=== PATIENT | female | born 1965 | race African-American/Black ===

== ENCOUNTER 2017-03-30 14:57 | Inpatient (IN) | payer MEDICARE, OTHER ==
[~2017-03-30] VITALS: Ht 162.6 cm; Wt 102.5 kg
[2017-03-30] MEDS ORDERED: INSU100I13 SQ (15:27)
[2017-03-30] MEDS ORDERED: AMLO10TA2 PO (15:27)
[2017-03-30] MEDS ORDERED: ASPIRIN 81 MG TAB.CHEW PO ONE (15:30)
[2017-03-30 15:34] LABS: BASO % 1 % (0-3); EOS # 0.1 x10^3/uL (0.0-0.7); EOS % 1 % (0-3); HEMATOCRIT 30.1 % (36.0-47.0); HEMOGLOBIN 10.5 g/dL (12.0-15.5); LYMPH # 0.8 x10^3/uL (1.0-4.8); LYMPH % 18 % (24-48); MEAN CORPUSCULAR HEMOGLOBIN 29 pg (25-35); MEAN CORPUSCULAR HGB CONC 35 g/dL (31-37); MEAN CORPUSCULAR VOLUME 83 fL (79-100); MONO # 0.3 x10^3/uL (0.0-1.1); MONO % 8 % (0-9); NEUT # 3.2 x10^3uL (1.8-7.7); NEUT % 72 % (31-73); PLATELET COUNT 172 x10^3/uL (140-400); RED BLOOD COUNT 3.64 x10^6/uL (3.50-5.40); RED CELL DISTRIBUTION WIDTH 13.2 % (11.5-14.5); WHITE BLOOD COUNT 4.4 x10^3/uL (4.0-11.0)
--- NOTE | 2017-03-30 15:36 | RAD ---
Portable chest, 03/30/2017: History: Chest pain The heart size and pulmonary vascularity are normal. No pulmonary infiltrates are seen. There is no evidence of pleural fluid. IMPRESSION: No acute cardiopulmonary abnormality is detected.
[2017-03-30 15:51] LABS: ALBUMIN 2.1 g/dL (3.4-5.0); ALBUMIN/GLOBULIN RATIO 0.6 (1.0-1.7); CALCIUM 8.4 mg/dL (8.5-10.1); CREATININE 2.8 mg/dL (0.6-1.0); GFR 21.7; MAGNESIUM 1.5 mg/dL (1.8-2.4); POTASSIUM 4.2 mmol/L (3.5-5.1); TOTAL BILIRUBIN 0.4 mg/dL (0.2-1.0); TOTAL PROTEIN 5.5 g/dL (6.4-8.2)
[2017-03-30] MEDS ORDERED: MORPHINE SULFATE 2 MG/ML DISP.SYRIN. IV PRN (17:30)
[2017-03-30] MEDS ORDERED: ONDANSETRON PF 4 MG/2 ML VIAL. IV PRN (17:30)
[2017-03-30] MEDS ORDERED: NITROGLYCERIN SUBLINGUAL 0.4 MG BOTTLE OF 25. SL PRN (17:30)
[2017-03-30] MEDS ORDERED: ACETAMINOPHEN 325 MG TABLET PO PRN (17:30)
[2017-03-30] MEDS ORDERED: MAGNESIUM SULFATE 1GM 100 ML IV ONE (17:45)
[2017-03-30] MEDS ORDERED: DEXTROSE 50% 25 GM / 50ML DISP.SYRIN. IV PRN (17:45)
[2017-03-30] MEDS ORDERED: IV RINGERS SOLUTION,LACTATED 1,000 ML IV PRN (17:45)
--- NOTE | 2017-03-30 17:46 | PHYS DOC ---
Past History Past Medical History: Diabetes, Hypertension, Other Past Surgical History: Tonsillectomy, Tubal ligation, Other Alcohol Use: None Drug Use: None Adult General Chief Complaint Chief Complaint: CHEST PAIN HPI HPI Patient is a 51 year old female who presents with chest pain. The patient reports onset of symptoms shortly prior to arrival while at rest. She reports substernal chest tightness radiating across her chest, associated with shortness of breath, nausea,diaphoresis. Denies fevers/chlls, cough, lower extremity pain/swelling. She states pain is slightly better now than at time of onset. She denies previous history of chest pain. She has history of diabetes, hypertension, denies tobacco use, reports family history of CHF in her mother. Has seen a silo erector previously. She has history of CKD & is followed by nephrology as of last week. Review of Systems Review of Systems Constitutional: Denies fever or chills Eyes: Denies change in visual acuity HENT: Denies nasal congestion or sore throat Respiratory: Denies cough, reports shortness of breath Cardiovascular: Reports chest pain, denies edema GI: Reports nausea, Denies abdominal pain, vomiting, bloody stools or diarrhea : Denies dysuria or hematuria Musculoskeletal: Denies back pain or joint pain Integument: Denies rash or skin lesions Neurologic: Denies headache, focal weakness or sensory changes Current Medications Current Medications Current Medications Medications (Trade) Dose Ordered Sig/Marlo Start Time Stop Time Status Last Admin Dose Admin Acetaminophen (Tylenol) 650 mg PRN Q4HRS PRN 03/30/17 17:30 03/31/17 17:29 Aspirin (Children'S Aspirin) 324 mg 1X ONCE 03/30/17 15:30 03/30/17 16:08 DC Dextrose 12.5 gm PRN Q15MIN PRN 03/30/17 17:45 UNV Lactated Ringer's 1,000 ml @ 100 mls/hr CONT 03/30/17 17:45 UNV Magnesium Sulfate/ Dextrose 100 ml @ 100 mls/hr 1X ONCE 03/30/17 17:45 03/30/17 18:44 Morphine Sulfate (Morphine 2mg Syringe) 2 mg PRN Q2HR PRN 03/30/17 17:30 03/31/17 17:29 Nitroglycerin (Nitrostat) 0.4 mg PRN Q5MIN PRN 03/30/17 17:30 03/31/17 17:29 Ondansetron HCl (Zofran) 4 mg PRN Q4HRS PRN 03/30/17 17:30 03/31/17 17:29 Allergies Allergies Allergies Coded Allergies Type Severity Reaction Last Updated Verified No Known Drug Allergies 03/30/17 No Physical Exam Physical Exam Constitutional:: obese, no acute distress, non-toxic appearance. HENT: Normocephalic, atraumatic, bilateral external ears normal, oropharynx moist, nose normal. Eyes: conjunctiva normal, no discharge. Neck: supple, no stridor. Cardiovascular: RRR, no murmurs, no edema. Lungs & Thorax: LCTAB, no wheezing, no respiratory distress. no reproducible tenderness with palpation over anterior chest wall. Abdomen: soft, nontender, nondistended. Skin: Warm, dry, no erythema, no rash. Back: No tenderness. Extremities: No tenderness, no edema. no calf tenderness or swelling. Neurologic: Alert and oriented X 3, no focal deficits noted. Psychologic: Affect normal, judgement normal, mood normal. Current Patient Data Vital Signs Vital Signs Date Time Temp Pulse Resp B/P (MAP) Pulse Ox O2 Delivery O2 Flow Rate FiO2 03/30/17 15:00 98.2 78 16 98 Room Air Lab Results Laboratory Tests Test 03/30/17 15:18 White Blood Count 4.4 x10^3/uL (4.0-11.0) Red Blood Count 3.64 x10^6/uL (3.50-5.40) Hemoglobin 10.5 g/dL (12.0-15.5) L Hematocrit 30.1 % (36.0-47.0) L Mean Corpuscular Volume 83 fL (79-100) Mean Corpuscular Hemoglobin 29 pg (25-35) Mean Corpuscular Hemoglobin Concent 35 g/dL (31-37) Red Cell Distribution Width 13.2 % (11.5-14.5) Platelet Count 172 x10^3/uL (140-400) Neutrophils (%) (Auto) 72 % (31-73) Lymphocytes (%) (Auto) 18 % (24-48) L Monocytes (%) (Auto) 8 % (0-9) Eosinophils (%) (Auto) 1 % (0-3) Basophils (%) (Auto) 1 % (0-3) Neutrophils # (Auto) 3.2 x10^3uL (1.8-7.7) Lymphocytes # (Auto) 0.8 x10^3/uL (1.0-4.8) L Monocytes # (Auto) 0.3 x10^3/uL (0.0-1.1) Eosinophils # (Auto) 0.1 x10^3/uL (0.0-0.7) Basophils # (Auto) 0.0 x10^3/uL (0.0-0.2) Prothrombin Time 9.9 SEC (9.4-11.4) Prothrombin Time INR 1.0 (0.9-1.1) Sodium Level 139 mmol/L (136-145) Potassium Level 4.2 mmol/L (3.5-5.1) Chloride Level 105 mmol/L (98-107) Carbon Dioxide Level 28 mmol/L (21-32) Anion Gap 6 (6-14) Blood Urea Nitrogen 41 mg/dL (7-20) H Creatinine 2.8 mg/dL (0.6-1.0) H Estimated GFR (Cockcroft-Gault) 21.7 BUN/Creatinine Ratio 15 (6-20) Glucose Level 233 mg/dL (70-99) H Calcium Level 8.4 mg/dL (8.5-10.1) L Magnesium Level 1.5 mg/dL (1.8-2.4) L Total Bilirubin 0.4 mg/dL (0.2-1.0) Aspartate Amino Transferase (AST) 17 U/L (15-37) Alanine Aminotransferase (ALT) 24 U/L (14-59) Alkaline Phosphatase 79 U/L (46-116) Troponin I Quantitative < 0.017 ng/mL (0-0.055) RO-Igy-C-Type Natriuretic Peptide 268 pg/mL (0-124) H Total Protein 5.5 g/dL (6.4-8.2) L Albumin 2.1 g/dL (3.4-5.0) L Albumin/Globulin Ratio 0.6 (1.0-1.7) L EKG EKG interpreted by me: NSR rate 80, no acute St/T wave changes, normal intervals, no ectopy.[] Radiology/Procedures Radiology/Procedures PROCEDURE: CHEST AP ONLY Portable chest, 03/30/2017: History: Chest pain The heart size and pulmonary vascularity are normal. No pulmonary infiltrates are seen. There is no evidence of pleural fluid. IMPRESSION: No acute cardiopulmonary abnormality is detected. DICTATED AND SIGNED BY: PAULETTE AMBROCIO MD DATE: 03/30/17 1533 [] Course & Med Decision Making Course & Med Decision Making Pertinent Labs and Imaging studies reviewed. (See chart for details) The patient presents with chest pain. EMS gave aspirin upon arrival; she declined pain medication here. Obtained labs, EKG, CXR. No acute abnormality identified. HEART score is 4, moderate risk. Recommend admission for further evaluation & treatment including cardiology consult. THe patient agrees with plan of care. Discussed with Dr. Kwan who agrees to admit to inpatient status. Cardiology consult to Dr. Carrero. Will attempt to obtain records from [facility] regarding baseline Cr as last labs here are from 2013 & she does have recent diagnosis of CKD. She is being admitted in stable condition. [] Dragon Disclaimer Dragon Disclaimer This chart was dictated in whole or in part using Voice Recognition software in a busy, high-work load, and often noisy Emergency Department environment. It may contain unintended and wholly unrecognized errors or omissions. Departure Departure: Impression: Primary Impression: Chest pain Additional Impressions: Chronic kidney disease Essential hypertension Hyperglycemia Disposition: ADMITTED INPATIENT Admitting Physician: Roma Kwan Condition: STABLE Referrals: MATTHEW TRINH MD (PCP) Problem Qualifiers MARGARITA MUHAMMAD MD Mar 30, 2017 17:46
[2017-03-30 18:15] VITALS: BP 175/103
[2017-03-30 19:00] VITALS: BP 162/83
--- NOTE | 2017-03-30 19:03 | EKG ---
[address] [address] Test Date: 2017-03-30 Test Time: 15:02:00 Pat Name: DIONNE POWERS Department: Room: Gender: F Groutman: RIC : 1965 Requested By: MARGARITA MUHAMMAD Order Number: [id number] Reading MD: Measurements Intervals Edelstein Rate: 80 P: 41 VA: 156 QRS: 31 QRSD: 82 T: 25 QT: 394 QTc: 458 Interpretive Statements SINUS RHYTHM LEFT ATRIAL ABNORMALITY QRS(T) CONTOUR ABNORMALITY CONSIDER ANTEROSEPTAL MYOCARDIAL DAMAGE ABNORMAL ECG RI6.01 No previous ECG available for comparison
--- NOTE | 2017-03-30 19:58 | NUR ---
51 year old female patient admitted from the ER to room 119 via EMS [facility]. Pt admitted for chest pain that she has experienced for a couple of days but today had to use her life alert to get help because it was so intense. Pt has had a cough for a couple of months and at times gets some thick yellow phlegm expectorated. 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 When pt was transferred from [facility] to bed, pt grabbed her left side of chest, had facial grimacing and rated pain 8/10 that subsided within about 45 seconds. Pt is type two diabetic, with ACHS accuchecks. Takes 12u of Novolog with meals and 30u of Lantus at bedtime. Pt son will be bringing in medication list as she recently had medication changes and unsure of meds/doses. Pt has a 20g in RFA started from EMS on transport and saline locked upon arrival. Pt was incontinent upon arrival due to coughing. Assisted to bathroom and given a brief and placed in gown. CXR and EKG from ER show no acute abnormalities. Pt currently rates pain 0/10 has call light within reach and denies further needs.
[2017-03-30] MEDS: INSULIN ASPART 300 UNITS/3 ML INSULN.PEN SQ SCH (20:26)
[2017-03-30] MEDS: INSULIN DETEMIR 300 UNITS/3 ML INSULN.PEN. SQ SCH (22:44)
[2017-03-30 23:00] VITALS: BP 155/80
[2017-03-31 05:07] VITALS: BP 149/84
[2017-03-31 08:14] LABS: BASO # 0.1 x10^3/uL (0.0-0.2); BASO % 1 % (0-3); EOS # 0.1 x10^3/uL (0.0-0.7); EOS % 1 % (0-3); HEMATOCRIT 30.9 % (36.0-47.0); HEMOGLOBIN 10.7 g/dL (12.0-15.5); LYMPH # 1.4 x10^3/uL (1.0-4.8); LYMPH % 27 % (24-48); MEAN CORPUSCULAR HEMOGLOBIN 29 pg (25-35); MEAN CORPUSCULAR HGB CONC 35 g/dL (31-37); MEAN CORPUSCULAR VOLUME 83 fL (79-100); MONO # 0.4 x10^3/uL (0.0-1.1); MONO % 8 % (0-9); NEUT # 3.1 x10^3uL (1.8-7.7); NEUT % 62 % (31-73); PLATELET COUNT 172 x10^3/uL (140-400); RED BLOOD COUNT 3.73 x10^6/uL (3.50-5.40); RED CELL DISTRIBUTION WIDTH 13.4 % (11.5-14.5)
[2017-03-31 08:26] LABS: ALBUMIN 2.1 g/dL (3.4-5.0); ALBUMIN/GLOBULIN RATIO 0.6 (1.0-1.7); CALCIUM 8.6 mg/dL (8.5-10.1); CREATININE 2.5 mg/dL (0.6-1.0); GFR 24.8; POTASSIUM 3.9 mmol/L (3.5-5.1); TOTAL BILIRUBIN 0.4 mg/dL (0.2-1.0); TOTAL PROTEIN 5.5 g/dL (6.4-8.2)
[2017-03-31] MEDS ORDERED: FLU VACC QS2017-18 (36MOS+)/PF 0.5 ML SYRINGE. VAX IM ONE (09:00)
[2017-03-31] MEDS ORDERED: Influenza vaccine per PROTOCOL. MC PRN (09:00)
[2017-03-31] MEDS: INSULIN ASPART 300 UNITS/3 ML INSULN.PEN SQ SCH ×3 (09:59→17:04)
[2017-03-31] MEDS ORDERED: IPRATRPIUM/ALBUTEROL 0.5/2.5MG 3 ML NEBU. NEB ONE (10:00)
--- NOTE | 2017-03-31 10:27 | PDOC2 ---
PRIMO GUEVARA HUMAN RESOURCES COMMUNICATIONS MANAGER 03/31/17 1027: CONSULT Date of Admission DATE: 03/31/17 TIME: 10:24 Reason for Consult: chest pain Problem List Problems Medical Problems: (1) Chest pain Status: Acute (2) Chest pain Status: Acute (3) Chronic kidney disease Status: Acute (4) Essential hypertension Status: Acute (5) Hyperglycemia Status: Acute History of Present Illness Ms Sanchez is a 51 year old female with history of hypertension, hyperlipidemia, diabetes mellitus, CKD. She presented with complaints of mid sternal chest tightness that started during light activity. She reports associated diaphoresis and dyspnea. She called EMS and was given aspirin and NTG on their arrival which she reports resolved her discomfort. She apparently saw a director of brand marketing last year (around May) for similar symptoms and underwent echo and MPI. She says testing was reportedly normal. She has continued to have symptoms about twice weekly since that time. She denies congestive symptoms, lightheadedness, syncope or palpitations. She does report some mild dyspnea and a dry cough she attributes to her asthma. She complains of lower extremity edema that worsens at the end of the day and is resolved in the AM as well as varicose veins. She denies a significant reduction in functional capacity but does no regular exercise. Past Medical History asthma, hypertension, GERD, hyperlipidemia, CKD stage III and nephrotic syndrome , diabetic neuropathy and retinopathy Past Surgical History cataract extraction with lens implant, tonsillectomy, tubal ligation Family History hypertension, hyperlipidemia, CAD, diabetes, stroke, cancer Social History non smoker, no significant ETOH, no illicit drugs Current Medications Current Medications Aspirin (Children'S Aspirin) 324 mg 1X ONCE PO ; Start 03/30/17 at 15:30; Stop 03/30/17 at 16:08; Status DC Ondansetron HCl (Zofran) 4 mg PRN Q4HRS PRN IV NAUSEA/VOMITING; Start 03/30/17 at 17:30; Stop 03/31/17 at 17:29 Morphine Sulfate (Morphine 2mg Syringe) 2 mg PRN Q2HR PRN IV PAIN; Start at 17:30; Stop 03/31/17 at 17:29 Acetaminophen (Tylenol) 650 mg PRN Q4HRS PRN PO FEVER; Start 03/30/17 at 17:30 ; Stop 03/31/17 at 17:29 Nitroglycerin (Nitrostat) 0.4 mg PRN Q5MIN PRN SL CHEST PAIN; Start 03/30/17 at 17:30; Stop 03/31/17 at 17:29 Magnesium Sulfate/ Dextrose 100 ml @ 100 mls/hr 1X ONCE IV Last administered on 03/30/17t 21:20; Start 03/30/17 at 17:45; Stop 03/30/17 at 18:44; Status DC Lactated Ringer's 1,000 ml @ 100 mls/hr CONT PRN PRN IV FLUID HYDRATION; Start 03/30/17 at 17:45 Dextrose 12.5 gm PRN Q15MIN PRN IV SEE COMMENTS; Start 03/30/17 at 17:45 Insulin Aspart (NovoLOG) 12 units TIDAC SQ Last administered on 03/31/17 09:59 ; Start 03/30/17 at 19:45 Insulin Detemir (Levemir) 30 units QHS SQ Last administered on 03/30/17 22:44 ; Start 03/30/17 at 21:00 Info (FLU VACCINE per PROTOCOL) 1 ea PRN 1X PRN MC PER PROTOCOL; Start at 09:00; Status UNV Influenza Virus Vaccine Quadrival (Fluarix Quad [id number] Syringe) 0.5 ml ONCE ONCE VAX IM ; Start 03/31/17 at 09:00; Stop 03/31/17 at 09:01; Status DC Albuterol/ Ipratropium (Duoneb) 3 ml 1X ONCE NEB ; Start 03/31/17 at 10:00; Stop 03/31/17 at 10:01; Status DC Amlodipine Besylate (Norvasc) 10 mg DAILY PO ; Start 03/31/17 at 10:15 Aspirin (Children'S Aspirin) 81 mg DAILYWBKFT PO ; Start 03/31/17 at 10:15 Levothyroxine Sodium (Synthroid) 75 mcg DAILY07 PO ; Start 03/31/17 at 10:15 Cetirizine HCl (ZyrTEC) 10 mg DAILY PO ; Start 03/31/17 at 10:15 Carvedilol (Coreg) 25 mg BIDWMEALS PO ; Start 03/31/17 at 10:15 Atorvastatin Calcium (Lipitor) 20 mg QHS PO ; Start 03/31/17 at 21:00 Famotidine (Pepcid) 20 mg DAILY PO ; Start 03/31/17 at 10:15 Active Scripts Active Reported Lantus Solostar (Insulin Glargine,Hum.rec.anlog) 100 Unit/1 Ml Insuln.pen 30 Unit SQ QHS Amlodipine Besylate 10 Mg Tablet 1 Tab PO DAILY Allergies: Coded Allergies: hydrocodone (Verified Allergy, Unknown, 03/31/17) latex (Unverified Allergy, Unknown, 03/31/17) lisinopril (Verified Allergy, Unknown, 03/31/17) metformin (Unverified Allergy, Unknown, 03/31/17) Review of System as per HPI General: Alert, Oriented X3, Cooperative, No acute distress HEENT: Atraumatic, EOMI, Mucous membr. moist/pink Lungs: Clear to auscultation, Normal air movement Heart: Regular rate, Normal S1, Normal S2, Other (no gallops, clicks or rubs) Abdomen: Normal bowel sounds, Soft, No tenderness Extremities: No cyanosis, Normal pulses, Other (trace bilateral edema) Neuro: Normal speech, Strength at 5/5 X4 ext Psych/Mental Status: Mental status NL, Mood NL VITALS Vital Signs Date Time Temp Pulse Resp B/P (MAP) Pulse Ox O2 Delivery O2 Flow Rate FiO2 03/31/17 05:07 98.5 78 17 149/84 (105) 97 Room Air Labs Laboratory Tests Test 03/30/17 15:18 03/30/17 18:43 03/30/17 20:06 03/31/17 07:43 White Blood Count 4.4 x10^3/uL (4.0-11.0) Red Blood Count 3.64 x10^6/uL (3.50-5.40) Hemoglobin 10.5 g/dL (12.0-15.5) Hematocrit 30.1 % (36.0-47.0) Mean Corpuscular Volume 83 fL (79-100) Mean Corpuscular Hemoglobin 29 pg (25-35) Mean Corpuscular Hemoglobin Concent 35 g/dL (31-37) Red Cell Distribution Width 13.2 % (11.5-14.5) Platelet Count 172 x10^3/uL (140-400) Neutrophils (%) (Auto) 72 % (31-73) Lymphocytes (%) (Auto) 18 % (24-48) Monocytes (%) (Auto) 8 % (0-9) Eosinophils (%) (Auto) 1 % (0-3) Basophils (%) (Auto) 1 % (0-3) Neutrophils # (Auto) 3.2 x10^3uL (1.8-7.7) Lymphocytes # (Auto) 0.8 x10^3/uL (1.0-4.8) Monocytes # (Auto) 0.3 x10^3/uL (0.0-1.1) Eosinophils # (Auto) 0.1 x10^3/uL (0.0-0.7) Basophils # (Auto) 0.0 x10^3/uL (0.0-0.2) Prothrombin Time 9.9 SEC (9.4-11.4) Prothromb Time International Ratio 1.0 (0.9-1.1) Sodium Level 139 mmol/L (136-145) Potassium Level 4.2 mmol/L (3.5-5.1) Chloride Level 105 mmol/L (98-107) Carbon Dioxide Level 28 mmol/L (21-32) Anion Gap 6 (6-14) Blood Urea Nitrogen 41 mg/dL (7-20) Creatinine 2.8 mg/dL (0.6-1.0) Estimated GFR (Cockcroft-Gault) 21.7 BUN/Creatinine Ratio 15 (6-20) Glucose Level 233 mg/dL (70-99) Calcium Level 8.4 mg/dL (8.5-10.1) Magnesium Level 1.5 mg/dL (1.8-2.4) Total Bilirubin 0.4 mg/dL (0.2-1.0) Aspartate Amino Transf (AST/SGOT) 17 U/L (15-37) Alanine Aminotransferase (ALT/SGPT) 24 U/L (14-59) Alkaline Phosphatase 79 U/L (46-116) Troponin I Quantitative < 0.017 ng/mL (0-0.055) FJ-Iwl-I-Type Natriuretic Peptide 268 pg/mL (0-124) Total Protein 5.5 g/dL (6.4-8.2) Albumin 2.1 g/dL (3.4-5.0) Albumin/Globulin Ratio 0.6 (1.0-1.7) Glucose (Fingerstick) 151 mg/dL (70-99) 217 mg/dL (70-99) 138 mg/dL (70-99) Test 03/31/17 08:00 White Blood Count 5.0 x10^3/uL (4.0-11.0) Red Blood Count 3.73 x10^6/uL (3.50-5.40) Hemoglobin 10.7 g/dL (12.0-15.5) Hematocrit 30.9 % (36.0-47.0) Mean Corpuscular Volume 83 fL (79-100) Mean Corpuscular Hemoglobin 29 pg (25-35) Mean Corpuscular Hemoglobin Concent 35 g/dL (31-37) Red Cell Distribution Width 13.4 % (11.5-14.5) Platelet Count 172 x10^3/uL (140-400) Neutrophils (%) (Auto) 62 % (31-73) Lymphocytes (%) (Auto) 27 % (24-48) Monocytes (%) (Auto) 8 % (0-9) Eosinophils (%) (Auto) 1 % (0-3) Basophils (%) (Auto) 1 % (0-3) Neutrophils # (Auto) 3.1 x10^3uL (1.8-7.7) Lymphocytes # (Auto) 1.4 x10^3/uL (1.0-4.8) Monocytes # (Auto) 0.4 x10^3/uL (0.0-1.1) Eosinophils # (Auto) 0.1 x10^3/uL (0.0-0.7) Basophils # (Auto) 0.1 x10^3/uL (0.0-0.2) Sodium Level 139 mmol/L (136-145) Potassium Level 3.9 mmol/L (3.5-5.1) Chloride Level 107 mmol/L (98-107) Carbon Dioxide Level 28 mmol/L (21-32) Anion Gap 4 (6-14) Blood Urea Nitrogen 38 mg/dL (7-20) Creatinine 2.5 mg/dL (0.6-1.0) Estimated GFR (Cockcroft-Gault) 24.8 BUN/Creatinine Ratio 15 (6-20) Glucose Level 158 mg/dL (70-99) Calcium Level 8.6 mg/dL (8.5-10.1) Magnesium Level 2.0 mg/dL (1.8-2.4) Total Bilirubin 0.4 mg/dL (0.2-1.0) Aspartate Amino Transf (AST/SGOT) 14 U/L (15-37) Alanine Aminotransferase (ALT/SGPT) 23 U/L (14-59) Alkaline Phosphatase 74 U/L (46-116) Troponin I Quantitative < 0.017 ng/mL (0-0.055) Total Protein 5.5 g/dL (6.4-8.2) Albumin 2.1 g/dL (3.4-5.0) Albumin/Globulin Ratio 0.6 (1.0-1.7) Images EKG - sinus rhythm, delayed R progression, non specific st/t abn CXR - no acute abn Assessment/Plan 1. chest pain, recurrent and exertional - relieved with Nitrates. UT ruled out. reported normal echo and MPI last year. Will request records. Echo today. 2. hypertension - resume home antihypertensives 3. hyperlipidemia - check lipids 4. uncontrolled diabetes mellitus - per PCP 5. CKD stage III - IV - will request labs from last year to establish baseline Cr. 6. venous insufficiency - outpatient reflux study Problems: BRIELLE VELEZ MD 03/31/17 2066: CONSULT Allergies: Coded Allergies: hydrocodone (Verified Allergy, Unknown, 03/31/17) latex (Unverified Allergy, Unknown, 03/31/17) lisinopril (Verified Allergy, Unknown, 03/31/17) metformin (Unverified Allergy, Unknown, 03/31/17) Assessment/Plan Pt. seen and examined. 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 I spoke to the patient today and she has atypical and typical features of angina. She is diabetic and has CKD with a normal stress. We discussed r/b/a to cath. She wishes to consider repeat stress testing. If negative, ok to DC. We will then f/u on outpt basis. If significant abn, may need cath. If mildly abn, could continue aggressive medical therapy. will f/u tomorrow after stress. Thanks for consultation. Problems: PRIMO GUEVARA APRN Mar 31, 2017 10:27 BRIELLE VELEZ MD Mar 31, 2017 18:46
[2017-03-31 10:30] VITALS: BP 162/94
[2017-03-31] MEDS: ASPIRIN 81 MG TAB.CHEW PO SCH (12:16)
[2017-03-31] MEDS: LEVOTHYROXINE 75 MCG TABLET PO SCH (12:17)
[2017-03-31] MEDS: amLODIPine BESYLATE 10 MG TABLET PO SCH (12:17)
[2017-03-31] MEDS: CETIRIZINE HCL 10 MG TABLET PO SCH (12:17)
[2017-03-31] MEDS: FAMOTIDINE 20 MG TABLET PO SCH (12:17)
[2017-03-31] MEDS: CARVEDILOL 12.5 MG TABLET PO SCH ×2 (12:17→20:52)
--- NOTE | 2017-03-31 13:33 | CARD ---
APPROVED REPORT EXAM: Two-dimensional and M-mode echocardiogram with Doppler and color Doppler. Other Information Quality : Average Rhythm : NSR INDICATION Chest Pain 2D DIMENSIONS RVDd2.2 (2.9-3.5cm)Left Atrium(2D)3.3 (1.6-4.0cm) IVSd1.5 (0.7-1.1cm)Aortic Root(2D)2.7 (2.0-3.7cm) LVDd3.2 (3.9-5.9cm)LVOT Diameter2.0 (1.8-2.4cm) PWd1.5 (0.7-1.1cm)LVDs2.1 (2.5-4.0cm) FS (%) 34.6 %SV27.3 ml LVEF(%)65.2 (>50%) Aortic Valve AoV Peak Alphonse.149.1cm/sAoV VTI28.0cm AO Peak GR.8.9mmHgLVOT Peak Alphonse.135.6cm/s LVOT VTI 25.89cmAO Mean GR.5mmHg JOSE (VMAX)2.79bv7DBE (VTI)2.83cm2 Mitral Valve MV E Oxklxnzd39.9cm/sMV DECEL ZIZN310oa MV A Rgwhsseu248.7cm/sMV EXY01zt E/A Ratio0.6MV A [id number] MVA (PHT)3.91cm2 Tricuspid Valve TR P. Zrmmbvvk558tr/sRAP OOLPRUQC5rlUo TR Peak Gr.67scTsSVJG61wmGz LEFT VENTRICLE The left ventricle is normal size. There is moderate concentric left ventricular hypertrophy. Left ve ntricle systolic function is normal. The Ejection Fraction is 65-70%. There is normal LV segmental wa ll motion. Tissue Doppler imaging reveals mild left ventricular diastolic dysfunction. Transmitral Do ppler flow pattern is Grade I-abnormal relaxation pattern. RIGHT VENTRICLE The right ventricle is normal size. The right ventricular systolic function is normal. ATRIA The left atrium size is normal. The right atrium size is normal. The interatrial septum is intact wit h no evidence for an atrial septal defect or patent foramen ovale as noted on 2-D or Doppler imaging. AORTIC VALVE The aortic valve is normal in structure and function. The aortic valve is trileaflet. Doppler and Col or Flow revealed trace aortic regurgitation. There is no significant aortic valvular stenosis. MITRAL VALVE The mitral valve leaflets are thickened. There is no mitral valve stenosis. Doppler and Color Flow re vealed trace to mild mitral regurgitation. TRICUSPID VALVE The tricuspid valve is normal in structure and function. Doppler and Color Flow revealed trace tricus pid regurgitation. The PA pressure was estimated at 17 mmHg. There is no tricuspid valve stenosis. PULMONIC VALVE The pulmonic valve is not well visualized. Doppler and Color Flow revealed no pulmonic valvular regur gitation. There is no pulmonic valvular stenosis. GREAT VESSELS The aortic root is normal in size. Normal pulmonary venous flow (Doppler). The IVC is normal in size and collapses >50% with inspiration. PERICARDIAL EFFUSION There is no evidence of significant pericardial effusion. Critical Notification Critical Value: No <Conclusion> Left ventricle systolic function is normal. The Ejection Fraction is 65-70%. There is moderate concentric left ventricular hypertrophy. Transmitral Doppler flow pattern is Grade I-abnormal relaxation pattern. Trace aortic regurgitation. Trace to mild mitral regurgitation. Trace tricuspid regurgitation. The PA pressure was estimated at 17 mmHg. There is no evidence of significant pericardial effusion.
--- NOTE | 2017-03-31 14:01 | HP ---
ADMIT DATE: 03/30/2017 REASON FOR ADMISSION: Chest pain. HISTORY OF PRESENT ILLNESS: This is a 51-year-old female patient of Dr. Azam Najera, who complaint of at rest having shortness of breath with clutching, squeezing type chest pain centrally, lasted about 30 seconds then subsided. She had a flush of heat, but denies diaphoresis or radiation. She was given a nitroglycerin in the Emergency Room, which helped. PAST MEDICAL HISTORY: Allergic rhinitis, asthma, lower extremity edema, chronic kidney disease, stage 3. 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 Other problems: Diabetic neuropathy, diabetic retinopathy, essential hypertension, GERD, hyperlipidemia, and nephrotic syndrome. PAST SURGICAL HISTORY: Cataracts, tonsillectomy, tubal ligation. SOCIAL HISTORY: She is a . She does not have any children, never smoked. No alcohol, no drug use. Exercises, does do some walking. FAMILY HISTORY: Hypertension in her brother, hyperlipidemia in her brother, alcohol abuse in her father. Father had a stroke. Mother with glaucoma, heart disease, stroke, cancer, diabetes. Another brother with glaucoma, another brother with heart disease, and another brother with mental illness and suicidal thoughts. ALLERGIES: Hydrocodone, Latex, lisinopril, metformin. MEDICATIONS: Reviewed and are available on the MAR. They were corrected from a different list that she had. REVIEW OF SYSTEMS: As per HPI. Sometimes she has some edema of the lower extremity. OBJECTIVE: VITAL SIGNS: Blood pressure 162/94, pulse 78, pulse ox 99, temperature 98.1, pulse 78, respirations 20, height 64 inches, weight 225 pounds. GENERAL: A 51-year-old in no acute distress, manner is calm and cooperative. ENT: Hearing is normal. Her eyes are clear. Nose was patent. Her throat was clear. NECK: Supple, without adenopathy. LUNGS: Clear to auscultation. CARDIOVASCULAR: Regular rhythm and rate with a 2/6 systolic murmur. ABDOMEN: Soft, nontender. EXTREMITIES: With trace of edema. LABORATORY DATA: Hemoglobin 10.7, hematocrit 30.9. Chemistry: BUN is 38, creatinine is 2.5., not much improved from yesterday of 41 and 2.8. Fating glucose this morning 158. Albumin is 2.1. Troponin 0.017 yesterday evening and 0.017 this morning. EKG has flipped T waves. ASSESSMENT: 1. Chest pain relieved with nitrates, myocardial infarction ruled out He had an echo and may need a stress test or catheterization per Cardiology 2. Hypertension. Resume home medications. 3. Hyperlipidemia. 4. Poorly controlled diabetes. 5. Chronic kidney disease, stage 3, has worsened. We will continue to monitor. 6. Trace edema. We will continue to monitor. 7. Hypoalbuminemia, may be related to kidney disease. PLAN: Await rest of her tests and we will repeat her echo and Cardiology will let me know what their plan is. COLLINS NORRIS DO DR: ASHLEY/anirudh JOB#: [id number] / [id number]
[2017-03-31 15:41] VITALS: BP 143/85
[2017-03-31 18:50] VITALS: BP 138/87
[2017-03-31] MEDS ORDERED: ATORVASTATIN CALCIUM 20 MG TABLET PO SCH (21:00)
[2017-03-31] MEDS: BUDESONIDE 0.5 MG/2 ML NEBU NEB SCH ×2 (22:19→22:26)
[2017-03-31] MEDS: ALBUTEROL SULFATE 2.5 MG/3 ML NEBU. NEB SCH (22:19)
[2017-03-31] MEDS: INSULIN DETEMIR 300 UNITS/3 ML INSULN.PEN. SQ SCH (22:36)
[2017-03-31 23:00] VITALS: BP 135/85
[2017-04-01 05:00] VITALS: BP 151/84
[2017-04-01] MEDS: ALBUTEROL SULFATE 2.5 MG/3 ML NEBU. NEB SCH ×3 (05:40→12:00)
[2017-04-01 06:46] LABS: BASO # 0.1 x10^3/uL (0.0-0.2); BASO % 1 % (0-3); EOS # 0.1 x10^3/uL (0.0-0.7); EOS % 3 % (0-3); HEMATOCRIT 29.5 % (36.0-47.0); HEMOGLOBIN 10.2 g/dL (12.0-15.5); LYMPH # 1.2 x10^3/uL (1.0-4.8); LYMPH % 24 % (24-48); MEAN CORPUSCULAR HEMOGLOBIN 29 pg (25-35); MEAN CORPUSCULAR HGB CONC 35 g/dL (31-37); MEAN CORPUSCULAR VOLUME 84 fL (79-100); MONO # 0.5 x10^3/uL (0.0-1.1); MONO % 9 % (0-9); NEUT # 3.3 x10^3uL (1.8-7.7); NEUT % 64 % (31-73); PLATELET COUNT 173 x10^3/uL (140-400); RED BLOOD COUNT 3.53 x10^6/uL (3.50-5.40); RED CELL DISTRIBUTION WIDTH 13.1 % (11.5-14.5); WHITE BLOOD COUNT 5.1 x10^3/uL (4.0-11.0)
[2017-04-01 06:55] LABS: ALBUMIN 2.1 g/dL (3.4-5.0); ALBUMIN/GLOBULIN RATIO 0.7 (1.0-1.7); CALCIUM 8.5 mg/dL (8.5-10.1); CREATININE 2.6 mg/dL (0.6-1.0); GFR 23.7; MAGNESIUM 1.8 mg/dL (1.8-2.4); POTASSIUM 4.2 mmol/L (3.5-5.1); TOTAL BILIRUBIN 0.4 mg/dL (0.2-1.0); TOTAL PROTEIN 5.3 g/dL (6.4-8.2)
[2017-04-01] MEDS: INSULIN ASPART 300 UNITS/3 ML INSULN.PEN SQ SCH ×2 (07:30→11:15)
[2017-04-01] MEDS: BUDESONIDE 0.5 MG/2 ML NEBU NEB SCH (08:00)
[2017-04-01] MEDS: CARVEDILOL 12.5 MG TABLET PO SCH (08:00)
[2017-04-01] MEDS: amLODIPine BESYLATE 10 MG TABLET PO SCH (08:25)
[2017-04-01] MEDS: FAMOTIDINE 20 MG TABLET PO SCH (08:25)
[2017-04-01] MEDS: ASPIRIN 81 MG TAB.CHEW PO SCH (08:25)
[2017-04-01 08:26] VITALS: BP 148/87
[2017-04-01] MEDS: CETIRIZINE HCL 10 MG TABLET PO SCH (08:26)
[2017-04-01] MEDS: LEVOTHYROXINE 75 MCG TABLET PO SCH (08:26)
[2017-04-01] MEDS ORDERED: REGADENOSON 0.4 MG/5 ML DISP.SYRIN. IV ONE (09:30)
--- NOTE | 2017-04-01 10:36 | PDOC ---
PROGRESS NOTES Diagnosis Problem Problems Medical Problems: (1) Chest pain Status: Acute (2) Chest pain Status: Acute (3) Chronic kidney disease Status: Acute (4) Essential hypertension Status: Acute (5) Hyperglycemia Status: Acute Assessment Problems Medical Problems: (1) Chest pain Status: Acute (2) Chest pain Status: Acute (3) Chronic kidney disease Status: Acute (4) Essential hypertension Status: Acute (5) Hyperglycemia Status: Acute 1. chest pain, recurrent and exertional - relieved with Nitrates. MN ruled out. Echo revealed normal LVEF 65% with moderate LVH. MPI this am. Continue medical therapy with aspirin, statin, and beta blockers. Add nitrates. If MPI normal ok for DC with follow up from CV perspective. 2. hypertension - resume home antihypertensives 3. hyperlipidemia - check lipids, continue statin 4. uncontrolled diabetes mellitus - per PCP 5. CKD stage III - IV - follow up with nephrology. consider resuming ARB due to history of proteinuria and nephrotic syndrome. 6. venous insufficiency - consider outpatient reflux study Problems: Subjective no chest pain, breathing easy, no lightheadedness or palpitations Objective Vital Signs Date Time Temp Pulse Resp B/P (MAP) Pulse Ox O2 Delivery O2 Flow Rate FiO2 04/01/17 08:26 77 148/87 (107) 04/01/17 08:05 Room Air 04/01/17 05:40 98 04/01/17 05:00 97.6 19 Abdomen: Normal bowel sounds, Soft Heart: Regular rate, Normal S1, Normal S2 Extremities: No cyanosis, Normal pulses, Other (trace edema) General: Alert, Oriented X3, Cooperative, No acute distress HEENT: Atraumatic, EOMI Lungs: Clear to auscultation, Normal air movement Neuro: Normal speech, Strength at 5/5 X4 ext Psych/Mental Status: Mental status NL, Mood NL Review of Relevant I have reviewed the following items rivera (where applicable) has been applied. Labs Laboratory Tests Test 03/30/17 15:18 03/30/17 18:43 03/30/17 20:06 03/31/17 07:43 White Blood Count 4.4 x10^3/uL (4.0-11.0) Red Blood Count 3.64 x10^6/uL (3.50-5.40) Hemoglobin 10.5 g/dL (12.0-15.5) Hematocrit 30.1 % (36.0-47.0) Mean Corpuscular Volume 83 fL (79-100) Mean Corpuscular Hemoglobin 29 pg (25-35) Mean Corpuscular Hemoglobin Concent 35 g/dL (31-37) Red Cell Distribution Width 13.2 % (11.5-14.5) Platelet Count 172 x10^3/uL (140-400) Neutrophils (%) (Auto) 72 % (31-73) Lymphocytes (%) (Auto) 18 % (24-48) Monocytes (%) (Auto) 8 % (0-9) Eosinophils (%) (Auto) 1 % (0-3) Basophils (%) (Auto) 1 % (0-3) Neutrophils # (Auto) 3.2 x10^3uL (1.8-7.7) Lymphocytes # (Auto) 0.8 x10^3/uL (1.0-4.8) Monocytes # (Auto) 0.3 x10^3/uL (0.0-1.1) Eosinophils # (Auto) 0.1 x10^3/uL (0.0-0.7) Basophils # (Auto) 0.0 x10^3/uL (0.0-0.2) Prothrombin Time 9.9 SEC (9.4-11.4) Prothromb Time International Ratio 1.0 (0.9-1.1) Sodium Level 139 mmol/L (136-145) Potassium Level 4.2 mmol/L (3.5-5.1) Chloride Level 105 mmol/L (98-107) Carbon Dioxide Level 28 mmol/L (21-32) Anion Gap 6 (6-14) Blood Urea Nitrogen 41 mg/dL (7-20) Creatinine 2.8 mg/dL (0.6-1.0) Estimated GFR (Cockcroft-Gault) 21.7 BUN/Creatinine Ratio 15 (6-20) Glucose Level 233 mg/dL (70-99) Calcium Level 8.4 mg/dL (8.5-10.1) Magnesium Level 1.5 mg/dL (1.8-2.4) Total Bilirubin 0.4 mg/dL (0.2-1.0) Aspartate Amino Transf (AST/SGOT) 17 U/L (15-37) Alanine Aminotransferase (ALT/SGPT) 24 U/L (14-59) Alkaline Phosphatase 79 U/L (46-116) Troponin I Quantitative < 0.017 ng/mL (0-0.055) VD-Xhe-G-Type Natriuretic Peptide 268 pg/mL (0-124) Total Protein 5.5 g/dL (6.4-8.2) Albumin 2.1 g/dL (3.4-5.0) Albumin/Globulin Ratio 0.6 (1.0-1.7) Glucose (Fingerstick) 151 mg/dL (70-99) 217 mg/dL (70-99) 138 mg/dL (70-99) Test 03/31/17 08:00 03/31/17 10:38 03/31/17 16:28 03/31/17 20:56 White Blood Count 5.0 x10^3/uL (4.0-11.0) Red Blood Count 3.73 x10^6/uL (3.50-5.40) Hemoglobin 10.7 g/dL (12.0-15.5) Hematocrit 30.9 % (36.0-47.0) Mean Corpuscular Volume 83 fL (79-100) Mean Corpuscular Hemoglobin 29 pg (25-35) Mean Corpuscular Hemoglobin Concent 35 g/dL (31-37) Red Cell Distribution Width 13.4 % (11.5-14.5) Platelet Count 172 x10^3/uL (140-400) Neutrophils (%) (Auto) 62 % (31-73) Lymphocytes (%) (Auto) 27 % (24-48) Monocytes (%) (Auto) 8 % (0-9) Eosinophils (%) (Auto) 1 % (0-3) Basophils (%) (Auto) 1 % (0-3) Neutrophils # (Auto) 3.1 x10^3uL (1.8-7.7) Lymphocytes # (Auto) 1.4 x10^3/uL (1.0-4.8) Monocytes # (Auto) 0.4 x10^3/uL (0.0-1.1) Eosinophils # (Auto) 0.1 x10^3/uL (0.0-0.7) Basophils # (Auto) 0.1 x10^3/uL (0.0-0.2) Sodium Level 139 mmol/L (136-145) Potassium Level 3.9 mmol/L (3.5-5.1) Chloride Level 107 mmol/L (98-107) Carbon Dioxide Level 28 mmol/L (21-32) Anion Gap 4 (6-14) Blood Urea Nitrogen 38 mg/dL (7-20) Creatinine 2.5 mg/dL (0.6-1.0) Estimated GFR (Cockcroft-Gault) 24.8 BUN/Creatinine Ratio 15 (6-20) Glucose Level 158 mg/dL (70-99) Calcium Level 8.6 mg/dL (8.5-10.1) Magnesium Level 2.0 mg/dL (1.8-2.4) Total Bilirubin 0.4 mg/dL (0.2-1.0) Aspartate Amino Transf (AST/SGOT) 14 U/L (15-37) Alanine Aminotransferase (ALT/SGPT) 23 U/L (14-59) Alkaline Phosphatase 74 U/L (46-116) Troponin I Quantitative < 0.017 ng/mL (0-0.055) Total Protein 5.5 g/dL (6.4-8.2) Albumin 2.1 g/dL (3.4-5.0) Albumin/Globulin Ratio 0.6 (1.0-1.7) Glucose (Fingerstick) 209 mg/dL (70-99) 172 mg/dL (70-99) 116 mg/dL (70-99) Test 04/01/17 06:12 04/01/17 07:58 White Blood Count 5.1 x10^3/uL (4.0-11.0) Red Blood Count 3.53 x10^6/uL (3.50-5.40) Hemoglobin 10.2 g/dL (12.0-15.5) Hematocrit 29.5 % (36.0-47.0) Mean Corpuscular Volume 84 fL (79-100) Mean Corpuscular Hemoglobin 29 pg (25-35) Mean Corpuscular Hemoglobin Concent 35 g/dL (31-37) Red Cell Distribution Width 13.1 % (11.5-14.5) Platelet Count 173 x10^3/uL (140-400) Neutrophils (%) (Auto) 64 % (31-73) Lymphocytes (%) (Auto) 24 % (24-48) Monocytes (%) (Auto) 9 % (0-9) Eosinophils (%) (Auto) 3 % (0-3) Basophils (%) (Auto) 1 % (0-3) Neutrophils # (Auto) 3.3 x10^3uL (1.8-7.7) Lymphocytes # (Auto) 1.2 x10^3/uL (1.0-4.8) Monocytes # (Auto) 0.5 x10^3/uL (0.0-1.1) Eosinophils # (Auto) 0.1 x10^3/uL (0.0-0.7) Basophils # (Auto) 0.1 x10^3/uL (0.0-0.2) Sodium Level 137 mmol/L (136-145) Potassium Level 4.2 mmol/L (3.5-5.1) Chloride Level 106 mmol/L (98-107) Carbon Dioxide Level 26 mmol/L (21-32) Anion Gap 5 (6-14) Blood Urea Nitrogen 39 mg/dL (7-20) Creatinine 2.6 mg/dL (0.6-1.0) Estimated GFR (Cockcroft-Gault) 23.7 BUN/Creatinine Ratio 15 (6-20) Glucose Level 171 mg/dL (70-99) Calcium Level 8.5 mg/dL (8.5-10.1) Magnesium Level 1.8 mg/dL (1.8-2.4) Total Bilirubin 0.4 mg/dL (0.2-1.0) Aspartate Amino Transf (AST/SGOT) 13 U/L (15-37) Alanine Aminotransferase (ALT/SGPT) 21 U/L (14-59) Alkaline Phosphatase 70 U/L (46-116) Troponin I Quantitative < 0.017 ng/mL (0-0.055) Total Protein 5.3 g/dL (6.4-8.2) Albumin 2.1 g/dL (3.4-5.0) Albumin/Globulin Ratio 0.7 (1.0-1.7) Glucose (Fingerstick) 167 mg/dL (70-99) Medications Current Medications Aspirin (Children'S Aspirin) 324 mg 1X ONCE PO ; Start 03/30/17 at 15:30; Stop 03/30/17 at 16:08; Status DC Ondansetron HCl (Zofran) 4 mg PRN Q4HRS PRN IV NAUSEA/VOMITING; Start 03/30/17 at 17:30; Stop 03/31/17 at 17:29; Status DC Morphine Sulfate (Morphine 2mg Syringe) 2 mg PRN Q2HR PRN IV PAIN; Start at 17:30; Stop 03/31/17 at 17:29; Status DC Acetaminophen (Tylenol) 650 mg PRN Q4HRS PRN PO FEVER; Start 03/30/17 at 17:30 ; Stop 03/31/17 at 17:29; Status DC Nitroglycerin (Nitrostat) 0.4 mg PRN Q5MIN PRN SL CHEST PAIN; Start 03/30/17 at 17:30; Stop 03/31/17 at 17:29; Status DC Magnesium Sulfate/ Dextrose 100 ml @ 100 mls/hr 1X ONCE IV Last administered on 03/30/17 21:20; Start 03/30/17 at 17:45; Stop 03/30/17 at 18:44; Status DC Lactated Ringer's 1,000 ml @ 100 mls/hr CONT PRN PRN IV FLUID HYDRATION; Start 03/30/17 at 17:45 Dextrose 12.5 gm PRN Q15MIN PRN IV SEE COMMENTS; Start 03/30/17 at 17:45 Insulin Aspart (NovoLOG) 12 units TIDAC SQ Last administered on 03/31/17 17:04 ; Start 03/30/17 at 19:45 Insulin Detemir (Levemir) 30 units QHS SQ Last administered on 03/31/17 22:36 ; Start 03/30/17 at 21:00 Info (FLU VACCINE per PROTOCOL) 1 ea PRN 1X PRN MC PER PROTOCOL; Start at 09:00; Status UNV Influenza Virus Vaccine Quadrival (Fluarix Quad 0756-6519 Syringe) 0.5 ml ONCE ONCE VAX IM ; Start 03/31/17 at 09:00; Stop 03/31/17 at 09:01; Status DC Albuterol/ Ipratropium (Duoneb) 3 ml 1X ONCE NEB Last administered on 15:50; Start 03/31/17 at 10:00; Stop 03/31/17 at 10:01; Status DC Amlodipine Besylate (Norvasc) 10 mg DAILY PO Last administered on 04/01/17 08: 25; Start 03/31/17 at 10:15 Aspirin (Children'S Aspirin) 81 mg DAILYWBKFT PO Last administered on 08:25; Start 03/31/17 at 10:15 Levothyroxine Sodium (Synthroid) 75 mcg DAILY07 PO Last administered on 08:26; Start 03/31/17 at 10:15 Cetirizine HCl (ZyrTEC) 10 mg DAILY PO Last administered on 04/01/17 08:26; Start 03/31/17 at 10:15 Carvedilol (Coreg) 25 mg BIDWMEALS PO Last administered on 03/31/17 20:52; Start 03/31/17 at 10:15 Atorvastatin Calcium (Lipitor) 20 mg QHS PO Last administered on 03/31/17 20: 51; Start 03/31/17 at 21:00 Famotidine (Pepcid) 20 mg DAILY PO Last administered on 04/01/17 08:25; Start 03/31/17 at 10:15 Budesonide (Pulmicort) 0.5 mg RTBID NEB Last administered on 03/31/17 22:26; Start 03/31/17 at 10:15 Albuterol Sulfate (Ventolin) 2.5 mg Q6HRS NEB Last administered on 04/01/17 05 :40; Start 03/31/17 at 12:00 Regadenoson (Lexiscan) 0.4 mg 1X ONCE IV ; Start 04/01/17 at 09:30; Stop at 09:31; Status DC Active Scripts Active Reported Lantus Solostar (Insulin Glargine,Hum.rec.anlog) 100 Unit/1 Ml Insuln.pen 30 Unit SQ QHS Amlodipine Besylate 10 Mg Tablet 1 Tab PO DAILY Vitals/I & O Vital Sign - Last 24 Hours 03/31/17 03/31/17 03/31/17 03/31/17 12:17 12:17 15:41 15:52 Temp 98.9 Pulse 78 78 77 Resp 16 B/P (MAP) 162/94 162/94 143/85 (104) Pulse Ox 96 98 O2 Delivery Room Air Room Air 03/31/17 03/31/17 03/31/17 03/31/17 18:50 20:00 20:52 22:20 Temp 98.2 Pulse 80 80 Resp 20 B/P (MAP) 138/87 (104) 138/87 Pulse Ox 99 98 O2 Delivery Room Air Room Air Room Air 03/31/17 03/31/17 04/01/17 04/01/17 22:26 23:00 05:00 05:40 Temp 97.6 Pulse 79 79 Resp 19 B/P (MAP) 135/85 (102) 151/84 (106) Pulse Ox 98 98 97 98 O2 Delivery Room Air Room Air Room Air Room Air 04/01/17 04/01/17 04/01/17 08:05 08:25 08:26 Pulse 77 77 B/P (MAP) 148/87 148/87 (107) O2 Delivery Room Air PRIMO GUEVARA APRN Apr 01, 2017 10:36
[2017-04-01 11:07] VITALS: BP 136/76
--- NOTE | 2017-04-01 13:37 | RAD ---
APPROVED REPORT Test Type: Pharmacological Stress Nurse/Tech: GUS Henderson Test Indications: CHEST PAIN Cardiac History: Risk factors Medications: See EHR See EHR Medical History: See EHR Resting ECG: SR NS CHANGES Resting Heart Rate: 79 bpm Resting Blood Pressure: 130/65mmHg Pretest Chest Pain: None Nurse/Tech Notes Consent: The procedure was explained to the patient in lay terms. Informed consent was witnessed. Shaun eout was entered into [employer]. History and Stress Test performed by GUS Henderson Pharm. Details Pharmacologic stress testing was performed using 0.4mg per 5ml of regadenoson given intravenously ove r 7-10 seconds. Stress Symptoms Dyspnea POST EXERCISE Reason for Termination: Infusion complete Max HR: 90 bpm Max Blood Pressure: 115/57mmHg Blood Pressure response to exercise: Normal blood pressure response during stress. Heart Rate response to exercise: NORMAL RESPONSE Chest Pain: No. INTERPRETATION Stress EKG Conclusion: Baseline EKG showed sinus rhythm. No ischemic changes at peak stress. No arr hythmias. Imaging Protocol IMAGE PROTOCOL: Stress Tc-99m/rest Tc-99m 2 days Rest: Stress: Viability: Radiopharm.Tc99m Sestamibi Dose32.8mCi Duration 12min. Img Date 04/01/2017 Inj-Img [id number]. Stress Admin Site: IV - Right AntecubitalAdministrator: GUS Henderson STRESS DATA End Diast. Vol.80.0mlAv. Heart Rate80.0bpm LVEDV index BSA1.0mlCardiac Output0.1L/min End Syst. Vol.17.0mlCO Index BSA5.1L/min LVESV index BSA0.0mlMyocardial Nryi051.0g Eject. Mvzhjzqj99.0% Stress Rates Pk. Fill Rate4.23EDV/secLVtime Pk. Fill 209.66msec Pk. Empty Rate4.97ESV/secLVtime Pk. Zhnaj734.82msec / Pk. Fill0.84EDV/sec Stress Scores Regional WT0.00Summed WT2.00 Regional WM0.00Summed WM0.00 LV Perfusion Stress scintigraphic images did not show any significant perfusion defects. Wall Motion Normal left ventricular systolic function with ejection fraction calculated at 79%. LV Perf. Quant 17 Seg. SSS0.00 Stress Defect Extent (% LAD)0.00Rest Defect Extent (% LAD)Rev. Defect Extent (% LAD)0.00 Stress Defect Extent (% LCX) 0.00Rest Defect Extent (% LCX)Rev. Defect Extent (% LCX)0.00 Stress Defect Extent (% RCA)0.00Rest Defect Extent (% RCA)Rev. Defect Extent (% RCA)0.00 Stress Defect Extent (% SHARON)0.00Rest Defect Extent (% SHARON)Rev. Defect Extent (% SHARON)0.00 Conclusion 1. Regadenoson cardioisotope stress test did not show any evidence of ischemia or infarct. 2. Normal left ventricular systolic function with ejection fraction calculated at 79%. 3. Low risk for cardiac events.
[2017-04-01] MEDS ORDERED: BUDE10.22 IH (13:52)
[2017-04-01] MEDS ORDERED: ASPI-630 PO (13:52)
[2017-04-01] MEDS ORDERED: INSU100I17 SQ (13:52)
[2017-04-01] MEDS ORDERED: LEVO75TA PO (13:52)
[2017-04-01] MEDS ORDERED: LORA10TA68 PO (13:53)
[2017-04-01] MEDS ORDERED: CARV25TA2 PO (13:53)
[2017-04-01] MEDS ORDERED: RANI150T2 PO (13:54)
[2017-04-01] MEDS ORDERED: ATOR20TA58 PO (13:54)
[2017-04-01] MEDS ORDERED: VALS80TA3 PO (13:54)
[2017-04-01] MEDS ORDERED: ISOS30TA4 PO (13:58)
[2017-04-01] MEDS ORDERED: LOSA50TA2 PO (14:07)
--- NOTE | 2017-04-01 15:40 | NUR ---
Discharge: Teaching verbal and written. Reviewed medication, follow-up, ECHO, stress test, ect. Patient verbalized understanding. [facility] physician. IV removed without complications, catheter tip in-tact. All belongings with patient. Patient assisted off of unit independently accompanied by son.
--- NOTE | 2017-04-02 01:29 | PN ---
DATE: CURRENT PROBLEMS: 1. Chest pain, myocardial infarction has been ruled out. She had a normal echo with LVH. Her MPI results are pending. 2. Hypertension. 3. Hyperlipidemia. 4. Uncontrolled diabetes. The patient's control has improved since last hemoglobin A1c. 5. Chronic kidney disease stage 3. She has had worsening of her kidney function in the last couple of weeks. 6. Venous insufficiency. 7. Normochromic normocytic anemia - present on admission. NARRATIVE: The patient had a quiet night and has not had any recurrent pain. We are awaiting results of her MPI. She has had IV fluids and her kidney function has not improved. OBJECTIVE: VITAL SIGNS: Blood pressure 136/76, pulse 86, respirations 22, pulse ox 99% on room air, temperature 97.6. GENERAL: Sitting up in bed, alert and oriented. LUNGS: Clear. CARDIOVASCULAR: Regular rhythm and rate. EXTREMITIES: With just a trace of edema. LABORATORY DATA: BUN is 39, creatinine 2.6, actually slightly . Glucoses in the mid 100s. Troponins negative. PLAN: We will need to see her kidney doctor again for followup and if the MPI is normal, she may be discharged home and if not, will need to stay for films tomorrow. She does not want to risk her calf with her kidney disease. COLLINS NORRIS DO DR: ASHLEY/anirudh JOB#: [id number] / [id number]
[2017-04-02] MEDS ORDERED: LOSARTAN 50 MG TABLET. PO SCH (09:00)
[2017-04-02] MEDS ORDERED: ISOSORBIDE MONONITRATE ER 30 MG TAB.ER.24H PO SCH (09:00)
--- NOTE | 2017-04-02 12:40 | PDOC3 ---
Discharge Summary Visit Information Date of Admission: Mar 30, 2017 Date of Discharge: Apr 01, 2017 Final Diagnosis Problems Medical Problems: (1) Chest pain Status: Acute (2) Chest pain Status: Acute (3) Chronic kidney disease Status: Acute (4) Essential hypertension Status: Acute (5) Hyperglycemia Status: Acute . Chest pain, myocardial infarction has been ruled out. She had a normal echo with LVH. Her MPI results are pending. 2. Hypertension. 3. Hyperlipidemia. 4. Uncontrolled diabetes. The patient's control has improved since last hemoglobin A1c. 5. Chronic kidney disease stage 3. She has had worsening of her kidney function in the last couple of weeks. 6. Venous insufficiency. 7. Normochromic normocytic anemia - present on admission. Problems: Brief Hospital Course Allergies Allergies Coded Allergies Type Severity Reaction Last Updated Verified hydrocodone Allergy Intermediate 04/01/17 Yes latex Allergy Intermediate 04/01/17 No lisinopril Allergy Intermediate 04/01/17 Yes metformin Allergy Intermediate 04/01/17 No Vital Signs Vital Signs Date Time Temp Pulse Resp B/P (MAP) Pulse Ox O2 Delivery O2 Flow Rate FiO2 04/01/17 11:07 97.6 86 22 136/76 (96) 99 Room Air Lab Results Laboratory Tests Test 03/31/17 16:28 03/31/17 20:56 04/01/17 06:12 04/01/17 07:58 Glucose (Fingerstick) 172 mg/dL (70-99) 116 mg/dL (70-99) 167 mg/dL (70-99) White Blood Count 5.1 x10^3/uL (4.0-11.0) Red Blood Count 3.53 x10^6/uL (3.50-5.40) Hemoglobin 10.2 g/dL (12.0-15.5) Hematocrit 29.5 % (36.0-47.0) Mean Corpuscular Volume 84 fL (79-100) Mean Corpuscular Hemoglobin 29 pg (25-35) Mean Corpuscular Hemoglobin Concent 35 g/dL (31-37) Red Cell Distribution Width 13.1 % (11.5-14.5) Platelet Count 173 x10^3/uL (140-400) Neutrophils (%) (Auto) 64 % (31-73) Lymphocytes (%) (Auto) 24 % (24-48) Monocytes (%) (Auto) 9 % (0-9) Eosinophils (%) (Auto) 3 % (0-3) Basophils (%) (Auto) 1 % (0-3) Neutrophils # (Auto) 3.3 x10^3uL (1.8-7.7) Lymphocytes # (Auto) 1.2 x10^3/uL (1.0-4.8) Monocytes # (Auto) 0.5 x10^3/uL (0.0-1.1) Eosinophils # (Auto) 0.1 x10^3/uL (0.0-0.7) Basophils # (Auto) 0.1 x10^3/uL (0.0-0.2) Sodium Level 137 mmol/L (136-145) Potassium Level 4.2 mmol/L (3.5-5.1) Chloride Level 106 mmol/L (98-107) Carbon Dioxide Level 26 mmol/L (21-32) Anion Gap 5 (6-14) Blood Urea Nitrogen 39 mg/dL (7-20) Creatinine 2.6 mg/dL (0.6-1.0) Estimated GFR (Cockcroft-Gault) 23.7 BUN/Creatinine Ratio 15 (6-20) Glucose Level 171 mg/dL (70-99) Calcium Level 8.5 mg/dL (8.5-10.1) Magnesium Level 1.8 mg/dL (1.8-2.4) Total Bilirubin 0.4 mg/dL (0.2-1.0) Aspartate Amino Transf (AST/SGOT) 13 U/L (15-37) Alanine Aminotransferase (ALT/SGPT) 21 U/L (14-59) Alkaline Phosphatase 70 U/L (46-116) Troponin I Quantitative < 0.017 ng/mL (0-0.055) Total Protein 5.3 g/dL (6.4-8.2) Albumin 2.1 g/dL (3.4-5.0) Albumin/Globulin Ratio 0.7 (1.0-1.7) Test 04/01/17 11:12 Glucose (Fingerstick) 177 mg/dL (70-99) Brief Hospital Course Ms. Sanchez is a 51 old FEMALE WHO PRESENTED WITH CHEST PAIN. CT RULED OUT. PROBABLY GERD. NO IMPROVEMENT INKIDNEY FUNCTION WITH FLUIDS. 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 Discharge Information Condition at Discharge: Improved Disposition/Orders: D/C to Home Dischare Medications Current Medications Aspirin (Children'S Aspirin) 324 mg 1X ONCE PO ; Start 03/30/17 at 15:30; Stop 03/30/17 at 16:08; Status DC Ondansetron HCl (Zofran) 4 mg PRN Q4HRS PRN IV NAUSEA/VOMITING; Start 03/30/17 at 17:30; Stop 03/31/17 at 17:29; Status DC Morphine Sulfate (Morphine 2mg Syringe) 2 mg PRN Q2HR PRN IV PAIN; Start at 17:30; Stop 03/31/17 at 17:29; Status DC Acetaminophen (Tylenol) 650 mg PRN Q4HRS PRN PO FEVER; Start 03/30/17 at 17:30 ; Stop 03/31/17 at 17:29; Status DC Nitroglycerin (Nitrostat) 0.4 mg PRN Q5MIN PRN SL CHEST PAIN; Start 03/30/17 at 17:30; Stop 03/31/17 at 17:29; Status DC Magnesium Sulfate/ Dextrose 100 ml @ 100 mls/hr 1X ONCE IV Last administered on 03/30/17 21:20; Start 03/30/17 at 17:45; Stop 03/30/17 at 18:44; Status DC Lactated Ringer's 1,000 ml @ 100 mls/hr CONT PRN PRN IV FLUID HYDRATION; Start 03/30/17 at 17:45; Stop 04/01/17 at 15:44; Status DC Dextrose 12.5 gm PRN Q15MIN PRN IV SEE COMMENTS; Start 03/30/17 at 17:45; Stop 04/01/17 at 15:44; Status DC Insulin Aspart (NovoLOG) 12 units TIDAC SQ Last administered on 04/01/17 11:15 ; Start 03/30/17 at 19:45; Stop 04/01/17 at 15:44; Status DC Insulin Detemir (Levemir) 30 units QHS SQ Last administered on 03/31/17 22:36 ; Start 03/30/17 at 21:00; Stop 04/01/17 at 15:44; Status DC Info (FLU VACCINE per PROTOCOL) 1 ea PRN 1X PRN MC PER PROTOCOL; Start at 09:00; Status UNV Influenza Virus Vaccine Quadrival (Fluarix Quad [id number] Syringe) 0.5 ml ONCE ONCE VAX IM Last administered on 04/01/17 13:18; Start 03/31/17 at 09:00; Stop 03/31/17 at 09:01; Status DC Albuterol/ Ipratropium (Duoneb) 3 ml 1X ONCE NEB Last administered on 15:50; Start 03/31/17 at 10:00; Stop 03/31/17 at 10:01; Status DC Amlodipine Besylate (Norvasc) 10 mg DAILY PO Last administered on 04/01/17 08: 25; Start 03/31/17 at 10:15; Stop 04/01/17 at 15:44; Status DC Aspirin (Children'S Aspirin) 81 mg DAILYWBKFT PO Last administered on 08:25; Start 03/31/17 at 10:15; Stop 04/01/17 at 15:44; Status DC Levothyroxine Sodium (Synthroid) 75 mcg DAILY07 PO Last administered on 08:26; Start 03/31/17 at 10:15; Stop 04/01/17 at 15:44; Status DC Cetirizine HCl (ZyrTEC) 10 mg DAILY PO Last administered on 04/01/17 08:26; Start 03/31/17 at 10:15; Stop 04/01/17 at 15:44; Status DC Carvedilol (Coreg) 25 mg BIDWMEALS PO Last administered on 03/31/17 20:52; Start 03/31/17 at 10:15; Stop 04/01/17 at 15:44; Status DC Atorvastatin Calcium (Lipitor) 20 mg QHS PO Last administered on 03/31/17 20: 51; Start 03/31/17 at 21:00; Stop 04/01/17 at 15:44; Status DC Famotidine (Pepcid) 20 mg DAILY PO Last administered on 04/01/17 08:25; Start 03/31/17 at 10:15; Stop 04/01/17 at 15:44; Status DC Budesonide (Pulmicort) 0.5 mg RTBID NEB Last administered on 03/31/17 22:26; Start 03/31/17 at 10:15; Stop 04/01/17 at 15:44; Status DC Albuterol Sulfate (Ventolin) 2.5 mg Q6HRS NEB Last administered on 04/01/17 05 :40; Start 03/31/17 at 12:00; Stop 04/01/17 at 15:44; Status DC Regadenoson (Lexiscan) 0.4 mg 1X ONCE IV Last administered on 04/01/17 09:30 ; Start 04/01/17 at 09:30; Stop 04/01/17 at 09:31; Status DC Losartan Potassium (Cozaar) 50 mg DAILY PO ; Start 04/02/17 at 09:00; Stop 04/02 at 09:00; Status DC Isosorbide Mononitrate (Imdur) 30 mg DAILY PO ; Start 04/02/17 at 09:00; Stop at 09:00; Status DC Active Scripts Active Cozaar (Losartan Potassium) 50 Mg Tablet 50 Mg PO DAILY 90 Days DOES NOT NEED THIS MEDICAATION Isosorbide Mononitrate Er (Isosorbide Mononitrate) 30 Mg Tab.er.24h 30 Mg PO DAILY 90 Days Reported Ranitidine Hcl 150 Mg Tablet 150 Mg PO DAILY Atorvastatin Calcium 20 Mg Tablet 20 Mg PO QHS Carvedilol 25 Mg Tablet 25 Mg PO BIDWMEALS Claritin (Loratadine) 10 Mg Tablet 10 Mg PO DAILY Synthroid (Levothyroxine Sodium) 75 Mcg Tablet 75 Mcg PO DAILYAC Novolog Flexpen (Insulin Aspart) 100 Unit/1 Ml Insuln.pen 12 Unit SQ TIDAC Symbicort 80-4.5 Mcg Inhaler (Budesonide/Formoterol Fumarate) 10.2 Gm Hfa.aer.ad 2 Puff IH BID Aspirin 81 Mg Tab.chew 81 Mg PO DAILY Lantus Solostar (Insulin Glargine,Hum.rec.anlog) 100 Unit/1 Ml Insuln.pen 30 Unit SQ QHS Amlodipine Besylate 10 Mg Tablet 1 Tab PO DAILY Patient Instructions Patient Instuctions SEE DISCHARGE ON [facility]. COLLINS NORRIS DO Apr 02, 2017 12:40
== END 2017-04-01 15:42 | disposition home or self-care (01) | DRG 392 ==
LOC: ER 14:57 → 1 SOUTH 16:40 → UNDOADMIN 16:41 → ER 18:00
PROVIDERS: ADMIT Family Medicine; ATTEND Family Medicine
DX: K21.9 Gastro-esophageal reflux disease without esophagitis (principal); E11.22 Type 2 diabetes mellitus with diabetic chronic kidney disease; E11.40 Type 2 diabetes mellitus with diabetic neuropathy, unspecified; N04.9 Nephrotic syndrome with unspecified morphologic changes; N18.3 Chronic kidney disease, stage 3 (moderate); D64.9 Anemia, unspecified; E11.319 Type 2 diabetes mellitus with unspecified diabetic retinopathy without macular edema; E11.65 Type 2 diabetes mellitus with hyperglycemia; E78.5 Hyperlipidemia, unspecified; I83.90 Asymptomatic varicose veins of unspecified lower extremity; I87.2 Venous insufficiency (chronic) (peripheral); J45.909 Unspecified asthma, uncomplicated; Z96.1 Presence of intraocular lens; Z79.4 Long term (current) use of insulin; Z79.51 Long term (current) use of inhaled steroids; Z79.82 Long term (current) use of aspirin; Z79.899 Other long term (current) drug therapy; Z82.3 Family history of stroke; Z81.1 Family history of alcohol abuse and dependence; Z82.49 Family history of ischemic heart disease and other diseases of the circulatory system; Z83.3 Family history of diabetes mellitus; Z91.040 Latex allergy status; Z88.8 Allergy status to other drugs, medicaments and biological substances; Z87.441 Personal history of nephrotic syndrome; Z90.49 Acquired absence of other specified parts of digestive tract; Z98.49 Cataract extraction status, unspecified eye; Z80.9 Family history of malignant neoplasm, unspecified
CPT/HCPCS: 36415; 71010; 78452; 80053; 80061; 82947; 83735; 83880; 84484; 85025; 85610; 90686; 93005; 93017; 93306; 94640; 96374; 96375; A9500; J1815; J2785; J3475; J7613; J7620; J7626; 99285-25